=== PATIENT | female | born 1985 | race African-American/Black ===

== ENCOUNTER 2019-12-16 20:36 | Emergency (ER) | payer OTHER ==
[2019-12-16 20:42] VITALS: BP 180/103
--- NOTE | 2019-12-16 21:04 | ER Document Report ---
ED Medical Screen (RME) - General Chief Complaint: Abscess Stated Complaint: POSS CYST UNDER ARM Mode of Arrival: Ambulatory Information source: Patient Notes: 34-year-old female relatively healthy presents emergency department with abscess under her right arm. Patient reports started approximately 1 week ago after she shaved. Denies history of having abscesses. She reports it popped with large amount of drainage but now she has large swelling going up her right arm. Denies fever vomiting diarrhea. Denies history of COVID exposure. I have greeted and performed a rapid initial assessment of this patient. A comprehensive ED assessment and evaluation of the patient, analysis of test results and completion of the medical decision making process will be conducted by additional ED providers. - Related Data Allergies/Adverse Reactions: No Known Allergies Allergy (Verified 12/16/19 20:59) Home Medications: propanolol Past Medical History - Social History Chew tobacco use (# tins/day): No Frequency of alcohol use: Occasional Drug Abuse: Marijuana Physical Exam - Vital signs Vitals: Temp Pulse Resp BP Pulse Ox 98.5 F 73 16 180/103 H 98 12/16/19 20:40 12/16/19 20:40 12/16/19 20:40 12/16/19 20:40 12/16/19 20:40 Course - Vital Signs Vital signs: Temp Pulse Resp BP Pulse Ox 98.5 F 73 16 180/103 H 98 12/16/19 20:50 12/16/19 20:40 12/16/19 20:40 12/16/19 20:40 12/16/19 20:40
[2019-12-16] MEDS ORDERED: LIDOCAINE 2% INJ (20 MG/ML) 20 ML MDV INJ ONE (22:37)
--- NOTE | 2019-12-16 22:39 | ER Document Report ---
ED General - General Chief Complaint: Abscess Stated Complaint: POSS CYST UNDER ARM Time Seen by Provider: 12/16/19 22:01 Mode of Arrival: Ambulatory Information source: Patient Notes: 34-year-old woman presents to the emergency department with a history of a area of swelling and drainage under her right arm. She states that she noted the area of swelling 3 days ago. And it began draining today. She is not diabetic, she denies fever. And she has had no prior episodes of abscess or axillary swelling/pain. - Related Data Allergies/Adverse Reactions: No Known Allergies Allergy (Verified 12/16/19 20:59) Home Medications: propanolol Past Medical History - General Information source: Patient - Social History Smoking Status: Never Smoker Chew tobacco use (# tins/day): No Frequency of alcohol use: Occasional Drug Abuse: Marijuana Family History: Reviewed & Not Pertinent Patient has homicidal ideation: No Review of Systems - Review of Systems Notes: Constitutional: Negative for fever. HENT: Negative for sore throat. Eyes: Negative for visual changes. Cardiovascular: Negative for chest pain. Respiratory: Negative for shortness of breath. Gastrointestinal: Negative for abdominal pain, vomiting or diarrhea. Genitourinary: Negative for dysuria. Musculoskeletal: Negative for back pain. Skin: + Abscess right axillary region Neurological: Negative for headaches, weakness or numbness. 10 point ROS negative except as marked above and in HPI. Physical Exam - Vital signs Vitals: Temp Pulse Resp BP Pulse Ox 98.5 F 73 16 180/103 H 98 12/16/19 20:40 12/16/19 20:40 12/16/19 20:40 12/16/19 20:40 12/16/19 20:40 - Notes Notes: PHYSICAL EXAMINATION: Physical Exam: General: Well-nourished well-developed in no acute distress HEENT: NC/AT, pupils equal round and reactive to light, MM moist,nares clear, oropharynx clear, airway patent Neck: supple, no adenopathy, no masses. Good range of motion Lungs: clear, no wheezing, no rales no rhonchi CVS: Regular rate and rhythm no murmur gallop or rub Abdomen: Soft, active, nontender, no masses, no hepatosplenomegaly Ext: No edema, clubbing or cyanosis. Neuro: Alert and responsive, moving all 4 extremities on command, cranial nerves intact, no focal findings Skin: Right axillary region with a 3 cm indurated swelling and a second area with an opening and mucopurulent drainage, tenderness, firm Course - Vital Signs Vital signs: Temp Pulse Resp BP Pulse Ox 98.5 F 73 16 180/103 H 98 12/16/19 20:50 12/16/19 20:40 12/16/19 20:40 12/16/19 20:40 12/16/19 20:40 Procedures - Incision and Drainage Right Arm Time completed: 23:40 Type: Simple, Single Anesthetic type: 2% Lidocaine mL's of anesthetic: 5 Blade size: 11 I&D procedure: Betadine prep applied, Chlorprep applied Incision Method: Incision made with needle Amount/type of drainage: 4 Notes: 12/16/19 23:39 The wound was probed with a straight Nadege and adhesions were broken. Patient tolerated procedure well with no complications. Discharge - Discharge Clinical Impression: Cutaneous abscess of right axilla Condition: Good Disposition: HOME, SELF-CARE Instructions: Abscess ([facility]), Trimethoprim-Sulfa ([facility]) Additional Instructions: You were treated for an abscess in the right axillary area in the emergency department tonight. Please use a warm compress over the area of swelling. Please take the antibiotic as prescribed. You may use Tylenol or ibuprofen for pain. If the area of swelling and drainage improves on its own there is no need for further treatment. If you are noticing worsening symptoms or have other concerns you return to the emergency department or follow-up with your primary care doctor as needed. HOME CARE INSTRUCTIONS & INFORMATION: Thank you for choosing us for your medical needs. We hope you're satisfied with the care you received. After you leave, you must properly care for your problem and, at the same time, observe its progress. Any condition can change. Some illnesses can change rapidly over hours or days. If your condition worsens, return to the Emergency Department or see your physician promptly. ABOUT YOUR X-RAYS AND EKG'S: If you had an EKG or X-rays taken, they have been read by the Emergency Physician. The X-rays and EKG's will also be read by a Radiologist or Sweater Designer within 24 hours. If discrepancies are noted, you will be notified by telephone. Please be certain the ED has a correct telephone number & address where you can be reached. Also, realize that some fractures or abnormalities do not show up on initial X-rays. If your symptoms continue, see your physician. ABOUT YOUR LABORATORY TEST: If you had laboratory tests, the results have been reviewed by the Emergency Physician. Some test results (for example cultures) may not be available for several days. You will be contacted if any test result shows you need additional treatment. Please be certain the ED has a correct telephone number and address where you can be reached. ABOUT YOUR MEDICATIONS: You will receive instructions on how to take your medicine on the prescription label you receive. Additional information may be provided by the Pharmacy. If you have questions afterwards, call the ED for clarification or further instructions. Some prescribed medications may cause drowsiness. Do not perform tasks such as driving a car or operating machinery without consulting your Pharmacist. If you feel you need a refill of pain medication, your condition will need re-evaluation. Please do not call for a refill of any medication. ABOUT YOUR SIGNATURE: Signature of this document acknowledges to followin. Understanding that you received emergency treatment and that you may be released before al medical problems are known or treated. Please be certain the ED has a correct phone number & address where you can be reached. 2. Acknowledgement that you will arrange for follow-up care as recommended. 3. Authorization for the Emergency Physician to provide information to your follow-up Physician in order to maximize your care. AT ANY TIME, IF YOUR SYMPTOMS CHANGE SIGNIFICANTLY OR WORSEN OR YOU DEVELOP NEW SYMPTOMS, RETURN TO THE EMERGENCY DEPARTMENT IMMEDIATELY FOR RE-EVALUATION. OUR GOAL IS TO PROVIDE EXCELLENT MEDICAL CARE! WE HOPE THAT WE HAVE MET YOUR EXPECTATIONS DURING YOUR EMERGENCY DEPARTMENT VISIT AND THAT YOU FEEL YOU HAVE RECEIVED EXCELLENT CARE! Prescriptions: Sulfamethoxazole/Trimethoprim [Bactrim Ds Tablet] 1 tab PO BID #28 tablet
[2019-12-16] MEDS ORDERED: SULFAMETHOXAZOLE/TRIMETHOPRIM 800-160 MG TABLET PO ONE (23:35)
== END 2019-12-17 00:18 | disposition home or self-care (01) ==
LOC: ER 20:36
DX: L02.411 Cutaneous abscess of right axilla (principal); F12.10 Cannabis abuse, uncomplicated; Z79.899 Other long term (current) drug therapy
CPT/HCPCS: 99283; 10060; J3490